=== PATIENT | male | born 1975 | race Caucasian/White ===

== ENCOUNTER 2016-06-06 07:27 | Outpatient (CLI) ==
[2016-05-29 03:54] VITALS: BMI 35.9
--- NOTE | 2016-06-06 08:31 | US ---
EXAM: Ultrasound of the abdomen, limited HISTORY: Cyst. Multiple palpable areas left abdomen. FINDINGS: [place]-scale ultrasound and color Doppler imaging was performed in the region of interest d escribed as the left abdomen, palpable area. In this region, there were multiple relatively well-de fined solid slightly echogenic superficial masses ranging from less than a centimeter to 3 cm in siz e. There is no posterior acoustic enhancement or shadowing. There is no hyperemia. No other findi ngs. IMPRESSION: Multiple superficial masses may represent lipomas. Exact etiology is not clear. Correla te with patient history. If more detailed diagnostic imaging is indicated, consider correlation wit h enhanced CT or MRI.
== END 2016-06-06 07:28 | disposition home or self-care (01) ==
LOC: RAD 07:27
PROVIDERS: ATTEND Emergency Medicine
DX: R19.09 Other intra-abdominal and pelvic swelling, mass and lump (principal)

== ENCOUNTER → 2016-08-29 | Outpatient (POV) ==
[2016-05-29 03:54] VITALS: BMI 35.9
== END ==
LOC: OUTPT 00:01
PROVIDERS: ATTEND Otolaryngology
DX: H69.90 Unspecified Eustachian tube disorder, unspecified ear (principal)
CPT/HCPCS: 92552

== ENCOUNTER 2016-09-04 12:21 | Outpatient (CLI) ==
[2016-05-29 03:54] VITALS: BMI 35.9
--- NOTE | 2016-09-04 13:06 | CT ---
EXAM: CT PARANASAL SINUSES HISTORY: Sinus pressure TECHNIQUE: CT paranasal sinuses without contrast. Detailed axial sections. Coronal and sagittal r eformations. Compared to 06/22/2013. FINDINGS: Frontal sinuses: Clear Ethmoid sinuses: Clear Sphenoid sinuses: Clear Maxillary sinuses: Clear General: Grosslycentral nasal septum. Nasal turbinates within normal limits. No obvious postop ch anges. No sinus fluid. IMPRESSION: Grossly clear sinuses. Unchanged since prior exam.
== END 2016-09-04 12:22 | disposition home or self-care (01) ==
LOC: RAD 12:21
PROVIDERS: ATTEND Emergency Medicine
DX: J32.9 Chronic sinusitis, unspecified (principal)

== ENCOUNTER 2016-09-05 10:29 | Emergency (ER) ==
[2016-09-05 10:45] VITALS: BP 172/99; TEMP 99.8; BMI 36.1
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
[2016-09-05 11:40] LABS: ABG BASE EXCESS -1 (-2.0-2.0); ABG HCO3 24.6 (22.0-26.0); ABG PCO2 43.4 mmHg (35-45); ABG PH 7.361 (7.35-7.45); ABG TCO2 26 (22.0-28.0)
[2016-09-05 11:41] LABS: BASOPHILS # (AUTO) 0.1 K/uL (0-0.2); BASOPHILS % (AUTO) 0.7 % (0.0-3.0); EOSINOPHILS # (AUTO) 0.1 K/ul (0.0-0.7); EOSINOPHILS % (AUTO) 0.7 % (0.0-7.0); HEMATOCRIT 49.6 % (42.0-52.0); HEMOGLOBIN 17.3 g/dl (14.0-18.0); IMMATURE GRANULOCYTE % (AUTO) 0.6 % (0.0-5.0); LYMPHOCYTES # (AUTO) 1.1 K/uL (0.60-3.4); LYMPHOCYTES % (AUTO) 10.5 (10.0-50.0); MEAN CORPUSCULAR HEMOGLOBIN 29.2 pg (27.0-31.0); MEAN CORPUSCULAR HGB CONC 34.9 (31.8-35.4); MEAN CORPUSCULAR VOLUME 83.6 fl (80.0-94.0); MONOCYTES # (AUTO) 0.5 K/uL (0.4-2.0); MONOCYTES % (AUTO) 4.4 (0-10); NEUTROPHILS # (AUTO) 8.8 K/ul (2.0-6.9); NEUTROPHILS % (AUTO) 83.1; PLATELET COUNT 148 10^3/uL (140-440); RED BLOOD COUNT 5.93 10^6/ul (4.70-6.10); WHITE BLOOD COUNT 10.62 K/ul (4.2-10.2)
[2016-09-05 12:01] LABS: FLU INTERNAL QC INTERNAL QC VALID; RAPID FLU A NEGATIVE (NEGATIVE); RAPID FLU B NEGATIVE (NEGATIVE)
[2016-09-05 12:02] LABS: ALBUMIN 4.9 g/dL (3.4-5.0); ALBUMIN/GLOBULIN RATIO 1.44; ANION GAP 13.9; BILIRUBIN,TOTAL 0.59 mg/dL (0.00-1.20); CALCIUM 9.6 mg/dL (8.2-10.2); CREATININE 1.11 mg/dL (0.60-1.10); POTASSIUM 3.9 mmol/L (3.5-5.1); TOTAL PROTEIN 8.3 g/dL (6.4-8.2)
--- NOTE | 2016-09-05 12:25 | DI ---
EXAM: Three x-rays of the chest. Comparison: 05/29/2016. Reason for study: Cough. FINDINGS: No pneumothorax, pleural effusion, or focal consolidation. The cardiac silhouette is not enlarged. Old granulomatous disease seen throughout the lung parenchyma. Impression: No acute cardiopulmonary process.
--- NOTE | 2016-09-05 12:37 | CT ---
EXAM: CT head without contrast. HISTORY: Headache. COMPARISON: 12/08/2013. TECHNIQUE: Multiple axial images of the brain were obtained from the skull base through the vertex without intravenous contrast. FINDINGS: There is no intracranial hemorrhage or extraaxial collection. The ortiz-white differentia tion is maintained without evidence for acute large vascular territory infarction. The cortical sul ci and basal cisterns are well visualized. There is no hydrocephalus, mass effect, or midline shift . The paranasal sinuses and mastoid air cells are clear. The calvarium is intact. Since the prior study, there has been no significant interval change. IMPRESSION: No acute intracranial abnormality.
== END 2016-09-05 14:50 | disposition home or self-care (01) ==
LOC: ED 10:29
DX: R51 Headache (principal); I10 Essential (primary) hypertension; J06.9 Acute upper respiratory infection, unspecified; R20.0 Anesthesia of skin; R53.1 Weakness; Z79.899 Other long term (current) drug therapy
CPT/HCPCS: 36415; 80053; 82803; 83605; 84145; 85025; 87040; 87651; 87804; 87880; 93005; 93010; 99283

== ENCOUNTER 2016-10-13 18:26 | Emergency (ER) ==
[2016-10-13 18:34] VITALS: BP 138/88; TEMP 98.7; BMI 35.5
[2016-10-13 19:19] LABS: BASOPHILS # (AUTO) 0.1 K/uL (0-0.2); EOSINOPHILS # (AUTO) 0.1 K/ul (0.0-0.7); EOSINOPHILS % (AUTO) 1.4 % (0.0-7.0); HEMATOCRIT 43.5 % (42.0-52.0); HEMOGLOBIN 15.3 g/dl (14.0-18.0); IMMATURE GRANULOCYTE % (AUTO) 0.5 % (0.0-5.0); LYMPHOCYTES # (AUTO) 1.5 K/uL (0.60-3.4); LYMPHOCYTES % (AUTO) 15.9 (10.0-50.0); MEAN CORPUSCULAR HEMOGLOBIN 28.9 pg (27.0-31.0); MEAN CORPUSCULAR HGB CONC 35.2 (31.8-35.4); MEAN CORPUSCULAR VOLUME 82.2 fl (80.0-94.0); MONOCYTES # (AUTO) 0.3 K/uL (0.4-2.0); MONOCYTES % (AUTO) 3.6 (0-10); NEUTROPHILS # (AUTO) 7.1 K/ul (2.0-6.9); NEUTROPHILS % (AUTO) 77.6; PLATELET COUNT 146 10^3/uL (140-440); RED BLOOD COUNT 5.29 10^6/ul (4.70-6.10); WHITE BLOOD COUNT 9.19 K/ul (4.2-10.2)
[2016-10-13 19:52] LABS: ALANINE AMINOTRANSFERASE 28 U/L (12-78); ALBUMIN 4.2 g/dL (3.4-5.0); ALBUMIN/GLOBULIN RATIO 1.24; ALKALINE PHOSPHATASE 64 U/L (50-136); ANION GAP 14.1; ASPARTATE AMINO TRANSFERASE 21 U/L (15-37); BILIRUBIN,TOTAL 0.25 mg/dL (0.00-1.20); BLOOD UREA NITROGEN 10 mg/dL (7-18); CALCIUM 9.4 mg/dL (8.2-10.2); CARBON DIOXIDE 26 mmol/L (21-32); CHLORIDE 103 mmol/L (98-107); CREATINE KINASE 72 U/L; CREATININE 0.97 mg/dL (0.60-1.10); GLUCOSE 99 mg/dL (70-100); POTASSIUM 4.1 mmol/L (3.5-5.1); SODIUM 139 mmol/L (136-145); TOTAL PROTEIN 7.6 g/dL (6.4-8.2)
--- NOTE | 2016-10-13 20:07 | CT ---
EXAM: CT head without contrast 10/13/2016. Sagittal and coronal reformatted images obtained HISTORY: Numbness and weakness COMPARISON: 09/05/2016 FINDINGS: There is no evidence of intracranial hemorrhage. The midline is maintained. There is no hydrocephalus. Chronic small vessel ischemic changes. No cerebellar tonsillar ectopia. Evaluation of the calvarium shows no fracture. The mastoid air cells are normally pneumatized. IMPRESSION: No acute intracranial abnormality.
--- NOTE | 2016-10-13 20:10 | CT ---
EXAM: Noncontrast CT of the chest HISTORY: Shortness of breath COMPARISON: 05/29/2016 TECHNIQUE: Noncontrast CT of the chest FINDINGS: No focal consolidation, pleural effusion or pneumothorax is identified. Heart size is normal. No mediastinal lymphadenopathy is seen. A 9 mm right thyroid lobe nodule is p resent. There are mild degenerative changes of the thoracic spine. Gynecomastia is noted. IMPRESSION: No acute cardiopulmonary findings. 9 mm right thyroid lobe nodule.
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
== END 2016-10-13 22:05 | disposition home or self-care (01) ==
LOC: ED 18:26
DX: R20.0 Anesthesia of skin (principal); M62.81 Muscle weakness (generalized); R68.83 Chills (without fever); E78.5 Hyperlipidemia, unspecified; E05.90 Thyrotoxicosis, unspecified without thyrotoxic crisis or storm; Z79.899 Other long term (current) drug therapy
CPT/HCPCS: 36415; 80053; 82550; 83605; 83880; 84145; 84484; 85025; 87040; 93005; 93010; 99283

== ENCOUNTER 2016-10-18 12:29 | Outpatient (CLI) | END 2016-10-18 12:30 | LOC: AMBL 12:29 | PROVIDERS: ATTEND Internal Medicine | DX: R51 Headache (principal); R20.0 Anesthesia of skin; R41.82 Altered mental status, unspecified; R00.0 Tachycardia, unspecified; R50.9 Fever, unspecified ==

== ENCOUNTER 2016-10-21 06:05 | Emergency (ER) ==
[2016-10-21 06:06] VITALS: BMI 35.5
[2016-10-21 06:15] VITALS: BP 143/96; TEMP 99.7
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
[2016-10-21 07:19] LABS: BASOPHILS # (AUTO) 0.1 K/uL (0-0.2); BASOPHILS % (AUTO) 0.7 % (0.0-3.0); EOSINOPHILS # (AUTO) 0.3 K/ul (0.0-0.7); EOSINOPHILS % (AUTO) 2.4 % (0.0-7.0); HEMATOCRIT 45.6 % (42.0-52.0); IMMATURE GRANULOCYTE % (AUTO) 0.4 % (0.0-5.0); LYMPHOCYTES # (AUTO) 2.4 K/uL (0.60-3.4); LYMPHOCYTES % (AUTO) 23.6 (10.0-50.0); MEAN CORPUSCULAR HGB CONC 35.1 (31.8-35.4); MEAN CORPUSCULAR VOLUME 82.6 fl (80.0-94.0); MONOCYTES # (AUTO) 0.7 K/uL (0.4-2.0); NEUTROPHILS # (AUTO) 6.7 K/ul (2.0-6.9); NEUTROPHILS % (AUTO) 65.9; PLATELET COUNT 161 10^3/uL (140-440); RED BLOOD COUNT 5.52 10^6/ul (4.70-6.10); WHITE BLOOD COUNT 10.22 K/ul (4.2-10.2)
[2016-10-21 07:46] LABS: ALANINE AMINOTRANSFERASE 21 U/L (12-78); ALBUMIN 4.4 g/dL (3.4-5.0); ALBUMIN/GLOBULIN RATIO 1.29; ALKALINE PHOSPHATASE 52 U/L (50-136); ANION GAP 18.6; ASPARTATE AMINO TRANSFERASE 21 U/L (15-37); BILIRUBIN,TOTAL 0.41 mg/dL (0.00-1.20); BLOOD UREA NITROGEN 13 mg/dL (7-18); BUN/CREATININE RATIO 12.03; CALCIUM 9.5 mg/dL (8.2-10.2); CARBON DIOXIDE 20 mmol/L (21-32); CHLORIDE 103 mmol/L (98-107); CREATINE KINASE 61 U/L; CREATININE 1.08 mg/dL (0.60-1.10); GLUCOSE 112 mg/dL (70-100); POTASSIUM 3.6 mmol/L (3.5-5.1); SODIUM 138 mmol/L (136-145); TOTAL PROTEIN 7.8 g/dL (6.4-8.2)
--- NOTE | 2016-10-21 09:35 | DI ---
EXAM: One-view chest HISTORY: Chest pain TECHNIQUE: Single frontal view the chest was obtained. FINDINGS: The heart is normal size. Lungs are clear. The pulmonary vasculature appears normal. T he osseous structures and mediastinal contours are normal. IMPRESSION: No active cardiopulmonary disease.
== END 2016-10-21 09:46 | disposition home or self-care (01) ==
LOC: ED 06:05
DX: R53.83 Other fatigue (principal); R53.81 Other malaise; R53.1 Weakness; R03.0 Elevated blood-pressure reading, without diagnosis of hypertension; Z79.899 Other long term (current) drug therapy
CPT/HCPCS: 36415; 80053; 82550; 83880; 84484; 85025; 93005; 93010; 99283

== ENCOUNTER → 2016-10-23 | Outpatient (POV) ==
[2016-10-21 06:06] VITALS: BMI 35.5
== END ==
LOC: OUTPT 00:01
PROVIDERS: ATTEND Otolaryngology
DX: H69.90 Unspecified Eustachian tube disorder, unspecified ear (principal)
CPT/HCPCS: 92552

== ENCOUNTER 2016-10-25 13:39 | Outpatient (CLI) | END 2016-10-25 13:40 | disposition home or self-care (01) | LOC: CAR 13:39 | PROVIDERS: ATTEND Internal Medicine | DX: G47.30 Sleep apnea, unspecified (principal) | CPT/HCPCS: 95810 ==

== ENCOUNTER 2017-05-22 10:51 | Outpatient (CLI) ==
--- NOTE | 2017-05-22 11:46 | CT ---
EXAM: CT of the right knee without contrast History: Right knee pain. Technique: Multiplanar CT images through the right knee were obtained without the administration of IV contrast Findings: No acute fracture or dislocation. Mild to moderate tricompartmental joint space narrowing with small osteophytes. Trace joint effusion. Anterior subcutaneous edema with skin thickening. R adiopaque metallic surgical clip seen within the lateral soft tissues. Impression: 1. No acute osseous abnormality. 2. Mild to moderate osteoarthritis. 3. Trace joint effusion. 4. Anterior subcutaneous edema with skin thickening
== END 2017-05-22 10:52 | disposition home or self-care (01) ==
LOC: RAD 10:51
PROVIDERS: ATTEND Internal Medicine
DX: M25.561 Pain in right knee (principal)

== ENCOUNTER 2017-06-02 11:46 | Inpatient (IN) ==
[2017-06-02 12:02] VITALS: BMI 36.1
--- NOTE | 2017-06-02 12:38 | CT ---
EXAM: CT chest without contrast HISTORY: Pneumonia TECHNIQUE: Multi-slice transaxial helical. Coronal and sagital reformations were performed. COMPARISON: 10/21/2016. FINDINGS: The heart is normal in size. No mediastinal adenopathy is seen. 9 mm hypodense nodule in the right thyroid gland appears unchanged from prior exam. Bilateral gyneco mastia is present. The spleen is mildly enlarged measuring up to 14.6 cm in craniocaudal length. Th ere is mild fatty infiltration of the pancreas. Osseous structures appear grossly unremarkable. Posterior right upper lobe and right lower lobe patchy airspace opacities are present. No evidence o f pleural effusion is seen. There is no pneumothorax. No evidence of pulmonary mass is seen. IMPRESSION: 1. Right upper lobe and right lower lobe patchy pneumonia. 2. 9 mm right thyroid gland nodule, unchanged from prior exam. 3. Splenomegaly.
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
[2017-06-02] MEDS ORDERED: TYLENOL PO PRN (13:10)
[2017-06-02] MEDS ORDERED: K-DUR PO STA (13:15)
[2017-06-02] MEDS ORDERED: ROCEPHIN ONE (13:23)
[2017-06-02] MEDS: ROCEPHIN 1 GM in SODIUM CHLORIDE 50 ML IV SCH (13:32)
[2017-06-02] MEDS: SODIUM CHLORIDE 1,000 ML IV SCH (13:33)
[2017-06-02] MEDS ORDERED: NON-FORMULARY MEDICATION (Diazepam [Valium] 10 MG) PO SCH (15:00)
[2017-06-02] MEDS: DOXYCYCLINE HYCLATE PO SCH ×2 (15:39→21:08)
[2017-06-02] MEDS: VALIUM PO SCH ×2 (15:39→21:08)
[2017-06-02] MEDS: LOPRESSOR PO SCH (17:21)
[2017-06-02] MEDS: DUONEB NEB SCH ×2 (17:25→23:25)
[2017-06-02] MEDS ORDERED: DOXY-100 100 MG in SODIUM CHLORIDE 100 ML IV SCH (21:00)
[2017-06-02] MEDS: CALAN SR PO SCH (21:08)
[2017-06-02] MEDS: ELAVIL PO SCH (21:08)
[2017-06-02] MEDS: REMERON PO SCH ×2 (21:09→21:15)
[2017-06-02] MEDS: ZESTRIL PO SCH (21:09)
[2017-06-02] MEDS: SOLU-MEDROL 40 MG IVP SCH (21:19)
[2017-06-03] MEDS: DUONEB NEB SCH ×4 (04:27→23:12)
[2017-06-03] MEDS: K-DUR PO SCH (05:55)
[2017-06-03] MEDS: LASIX TAB PO SCH (05:55)
[2017-06-03] MEDS: METHADONE PO SCH (05:56)
[2017-06-03] MEDS: SODIUM CHLORIDE 1,000 ML IV SCH ×2 (05:58→19:35)
[2017-06-03] MEDS ORDERED: METHADONE HCL 80 MG PO SCH (09:00)
[2017-06-03] MEDS ORDERED: METHADONE PO SCH (09:00)
[2017-06-03] MEDS: LOPRESSOR PO SCH ×2 (09:06→16:29)
[2017-06-03] MEDS: SOLU-MEDROL 40 MG IVP SCH ×2 (09:06→21:38)
[2017-06-03] MEDS: VALIUM PO SCH ×3 (09:06→21:40)
[2017-06-03] MEDS: ELAVIL PO SCH ×2 (09:06→21:40)
[2017-06-03] MEDS: ROCEPHIN 1 GM in SODIUM CHLORIDE 50 ML IV SCH (09:06)
[2017-06-03] MEDS: DOXYCYCLINE HYCLATE PO SCH ×2 (09:06→21:40)
[2017-06-03] MEDS: ZESTRIL PO SCH ×2 (09:06→21:41)
[2017-06-03] MEDS: CALAN SR PO SCH ×2 (09:06→21:40)
[2017-06-03] MEDS: LOVENOX SUBCUT SCH (09:07)
[2017-06-03] MEDS: REMERON PO SCH (21:41)
[2017-06-04] MEDS: DUONEB NEB SCH ×2 (04:19→10:27)
[2017-06-04] MEDS: METHADONE PO SCH (05:53)
[2017-06-04] MEDS: K-DUR PO SCH (05:53)
[2017-06-04] MEDS: LASIX TAB PO SCH (05:53)
[2017-06-04] MEDS: LOVENOX SUBCUT SCH (08:49)
[2017-06-04] MEDS: ROCEPHIN 1 GM in SODIUM CHLORIDE 50 ML IV SCH (08:49)
[2017-06-04] MEDS: SODIUM CHLORIDE 1,000 ML IV SCH (08:50)
[2017-06-04] MEDS: CALAN SR PO SCH (08:50)
[2017-06-04] MEDS: ZESTRIL PO SCH (08:50)
[2017-06-04] MEDS: LOPRESSOR PO SCH (08:50)
[2017-06-04] MEDS: DOXYCYCLINE HYCLATE PO SCH (08:50)
[2017-06-04] MEDS: VALIUM PO SCH (08:50)
[2017-06-04] MEDS: SOLU-MEDROL 40 MG IVP SCH (08:50)
[2017-06-04] MEDS: ELAVIL PO SCH (08:50)
--- NOTE | 2017-06-04 09:46 | DI ---
EXAM: PA and lateral views of the chest HISTORY: Follow up pneumonia COMPARISON: CT chest 04/25/2013 FINDINGS: The cardiomediastinal silhouette is normal. There is no pneumothorax or pleural effusion. There is no consolidation, nodule or mass. The osseous structures are unremarkable. IMPRESSION: No acute cardiopulmonary process
--- NOTE | 2017-06-04 09:51 | PCM.PROG ---
Attending Provider: ATTENDING PROVIDER: Dr. NATHALY MAYS DATE OF SERVICE: 06/04/17 SUBJECTIVE: This 41 year old WHITE/ M was hospitalized 06/02/17. The patient is hospitalized with pneumonia. Condition is improved remarkably. He does not have any fever or chills. He is eating well, up and about. He wants to go home. REVIEW OF SYSTEMS: CONSTITUTIONAL: No night sweats. No fatigue, malaise, lethargy. No fever or chills. HEENT: Eyes: No visual changes. No eye pain. No eye discharge. ENT: No runny nose. No epistaxis. No sinus pain. No odynophagia. No congestion. RESPIRATORY: No cough, no congestion. No hemoptysis. Talks in full sentences with no obvious shortness of breath. CARDIOVASCULAR: No angina symptoms. No CHF symptoms. No atypical chest pain for CAD. No palpitations. No orthopnea.. GASTROINTESTINAL: No abdominal pain. No nausea or vomiting. No diarrhea or constipation. No hematemesis. No hematochezia. GENITOURINARY: No urgency. No frequency. No dysuria. No hematuria. No obstructive symptoms. No discharge. No pain. No significant abnormal bleeding. MUSCULOSKELETAL: No musculoskeletal pain; no joint swelling. NEUROLOGICAL: Awake, alert, oriented to time, place and person. No headache. No neck pain. No syncope. No seizures. No dizziness. PSYCHIATRIC: Not anxious. No depression. No suicidal thoughts. No homicidal thoughts. SKIN: No rash. No lesions. No wounds. ENDOCRINE: No unexplained weight loss. No weight gain. HEMATOLOGIC/LYMPHATIC: No anemia. No purpura. No petechiae. No prolonged or excessive bleeding. No palpable lymph nodes. PHYSICAL EXAMINATION: GENERAL: The patient is awake, alert and oriented, sitting in bed in no distress. VITAL SIGNS: Temperature 97.1 F, Pulse 90, Respiratory Rate 20, BP 112/63, Pulse Ox 97% HEENT: Head normocephalic, atraumatic. Eyes: Extraocular muscles are intact. Pupils are equal, round and reactive to light and accommodation. Ears: No lesions. Nose appeared normal. Throat: No exudate or erythema. NECK: Supple. No JVD, no carotid bruit. No lymphadenopathy or thyromegaly. LUNGS: Decreased breath sounds but clear to auscultation. Percussion note normal. Chest symmetrical. HEART: S1, S2, no S3. No murmurs. No cyanosis or clubbing. No ascites. Pulses: Dorsalis pedis and posterior tibial pulses +1 to +2 both sides. ABDOMEN: Soft. Non-tender. Bowel sounds active. No CVA tenderness. No mass felt. EXTREMITIES: No pedal edema. Full range of motion of all extremities, equal. NEUROLOGIC: No focal deficit. Cranial nerves II through XII are grossly intact. No headache, no double vision or headache. SKIN: Not dry. Intact. Turgor-normal. LYMPHATIC: No palpable lymph nodes/no lymphedema. MUSCULOSKELETAL: Normal joints with no swelling. Muscle tone is normal. LAB REVIEW: 06/04/17 04:30 06/04/17 04:30 06/04/17 04:30: Sodium 138, Potassium 4.2, Chloride 104, Carbon Dioxide 23, Anion Gap 15.2, BUN 18, Creatinine 0.84, Estimated GFR (MDRD) 102.00, BUN/ Creatinine Ratio 21.42, Glucose 150 H, Calcium 9.3, Total Bilirubin 0.3, AST 17 , ALT 26, Alkaline Phosphatase 69, Total Protein 7.1, Albumin 3.5, Globulin 3.6 , Albumin/Globulin Ratio 0.97 06/04/17 04:30: WBC 15.47 H, RBC 4.49 L, Hgb 13.1 L, Hct 39.5 L, MCV 88.0, MCH 29.2, MCHC 33.2, RDW Coeff of Tory 13.3, Plt Count 145, Immature Gran % (Auto) 0.7, Neut % (Auto) 89.4, Lymph % (Auto) 8.2 L, Bell % (Auto) 1.6, Eos % (Auto) 0.0, Baso % (Auto) 0.1, Immature Gran # (Auto) 0.1, Neut # 13.8 H, Lymph # 1.3, Bell # 0.2 L, Eos # 0.0, Baso # 0.0 ASSESSMENT: 1. Shortness of breath is secondary to inactivity/overweight/chronic lung disease 2. Leukocytosis likely from steroids PLAN: 1. Repeat chest x-ray 2. Up and about without any problems 3. Anticipate discharge 4. Echocardiogram to be done today before discharge to evaluate LV function 5. Keflex 500 mg t.i.d. for 7 days 6. Prednisone 20 mg daily for 5 days then 10 mg daily for 5 days 7. Will see back in 5 to 7 days 8. Doxycycline 50 mg b.i.d. for 5 days Plan and coordination of the patient's care discussed in the presence of Form Builder Helper and nurse. CONDITION: Overall stable. SCRIBED BY: SCOTT NUÑEZ [employer] scribed while in presence of service performed by Dr. NATHALY MAYS on 06/04/17 ([id number])
[2017-06-04 10:31] VITALS: BP 138/76; TEMP 97.6
--- NOTE | 2017-06-04 10:43 | PN ---
DATE OF SERVICE: 06/03/17 SUBJECTIVE: The patient was hospitalized with acute bronchitis/pneumonitis and pneumonia on the right side. The patient is feeling better. The Grandmother is in the room. REVIEW OF SYSTEMS: CONSTITUTIONAL: No night sweats. No fatigue, malaise, lethargy. No fever or chills. HEENT: Eyes: No visual changes. No eye pain. No eye discharge. ENT: No runny nose. No epistaxis. No sinus pain. No sore throat. No odynophagia. No congestion. RESPIRATORY: No cough, no congestion. No hemoptysis. No shortness of breath. CARDIOVASCULAR: No angina symptoms. No CHF symptoms. No atypical chest pain for CAD. No palpitations. No orthopnea. GASTROINTESTINAL: No abdominal pain. No nausea or vomiting. No diarrhea or constipation. No hematemesis. No hematochezia. GENITOURINARY: No urgency. No frequency. No dysuria. No hematuria. No obstructive symptoms. No discharge. No pain. No significant abnormal bleeding. MUSCULOSKELETAL: No musculoskeletal pain; no joint swelling. NEUROLOGICAL: No headache. No neck pain. No syncope. No seizures. No dizziness. PSYCHIATRIC: Not anxious. No depression. No suicidal thoughts. No homicidal thoughts. SKIN: No rash. No lesions. No wounds. ENDOCRINE: No unexplained weight loss. No weight gain. HEMATOLOGIC/LYMPHATIC: No anemia. No purpura. No petechiae. No prolonged or excessive bleeding. No palpable lymph nodes. PHYSICAL EXAMINATION: GENERAL: The patient is oriented to time, place and person. HEENT: Head normocephalic, atraumatic. Eyes: Extraocular muscles are intact. Pupils are equal, round and reactive to light and accommodation. Ears: No lesions. Nose appeared normal. Throat: No exudate or erythema. NECK: Supple. No JVD, no carotid bruit. No lymphadenopathy or thyromegaly. LUNGS: Decreased breath sounds but clear to auscultation. Percussion note normal. Chest symmetrical. HEART: S1, S2, no S3. No murmurs. No cyanosis or clubbing. No ascites. Pulses: Dorsalis pedis and posterior tibial pulses +1 to +2 both sides. ABDOMEN: Soft. Nontender. Bowel sounds active. No CVA tenderness. No mass felt. EXTREMITIES: No edema. Full range of motion of all extremities, equal. NEUROLOGIC: No focal deficit. Cranial nerves II through XII are grossly intact. No headache, no double vision or headache. SKIN: Not dry. Intact. Turgor - normal. LYMPHATIC: No palpable lymph nodes/no lymphedema. MUSCULOSKELETAL: Normal joints with no swelling. Muscle tone is normal. ASSESSMENT: 1. Acute bronchitis 2. Chronic lung disease 3. Obesity PLAN: 1. Continue antibiotics, steroids and NEBS treatment 2. Will echocardiogram to evaluate LV function. TIME SPENT: More than 30 minutes. Plan and coordination of the patient's care discussed in the presence of nurse. STEVE
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
[2017-06-04] MEDS ORDERED: VALIUM PO SCH (15:00)
[2017-06-05] MEDS ORDERED: METHADONE PO SCH (05:30)
--- NOTE | 2017-06-06 14:02 | ECHO2D ---
Date of Exam: 06/04/17 Ordering Physician: NATHALY MAYS Room #: 107 Reason for Echo: EVALUATE LEFT VENTRICLE FUNCTION M-Mode Normal Adult Results LV Dimensions Normal Adult Results AoV Opening excursions >1.6 >1.6 LVEDD-base- 3.5-5.8 4.8 Ao root dimensions 2.0-3.7 3.3 LVESD-base- 3.1-4.6 L. Atrium dimensions 1.9-3.8 4.0 Post. Wall thickness 0.8-1.1 1.1 IV septum (thickness) 0.7-1.2 1.2 Post. Wall excursion 0.72-1.3 NORMAL Septal motion NORMAL Systolic motion R. Ventricular cavity 1.5-2.0 NORMAL LVEF 60% 65% Paradoxical septal wall motion NORMAL 2-D : 2-D M Mode Echocardiogram was performed using apical four chamber and left parasternal long and short axis views. Mitral, tricuspid and aortic valves appear to be normal. Contractility of the left ventricle seems to be normal, so is the cavity size. Left atrial cavity size and aortic root appear to be normal. There is no pericardial effusion. There is no thrombus noted in the left ventricular or left aortic cavity. No mitral valve prolapse noted. M-MODE: MV: NORMAL AV: NORMAL TV: NORMAL PV: CHAMBER SIZE: NORMAL WALL MOTION: NORMAL PERICARDIUM: NORMAL INTERPRETATION: 1. LEFT VENTRICULAR HYPERTROPHY 2. NORMAL LEFT VENTRICULAR CONTRACTILITY 3. NORMAL VALVES MTDD
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
--- NOTE | 2017-06-23 12:56 | PN ---
CODING FOR BILLING 06/02/17 LEVEL 5 06/03/17 INTERMEDIATE 06/04/17 DISCHARGE MTDD
== END 2017-06-04 14:03 | disposition home or self-care (01) | DRG 194 ==
LOC: ED 11:46 → MEDSURG A 13:11
PROVIDERS: ADMIT Internal Medicine; ATTEND Internal Medicine
DX: J18.9 Pneumonia, unspecified organism (principal); F19.20 Other psychoactive substance dependence, uncomplicated; R06.02 Shortness of breath; R05 Cough; I51.7 Cardiomegaly; R16.1 Splenomegaly, not elsewhere classified; J44.9 Chronic obstructive pulmonary disease, unspecified; E66.9 Obesity, unspecified; I10 Essential (primary) hypertension; E78.5 Hyperlipidemia, unspecified; Z72.3 Lack of physical exercise; Z79.899 Other long term (current) drug therapy; Z87.828 Personal history of other (healed) physical injury and trauma
CPT/HCPCS: 36415; 80053; 82803; 85025; 87040; 87502; 87651; 93005; 93010; 94640; 96365; 99284